=== PATIENT | male | born 1935 | race African-American/Black ===

== ENCOUNTER 2017-04-16 14:26 | Inpatient (IN) | payer MEDICARE, MEDICAID ==
[~2017-04-16] VITALS: Ht 185.4 cm; Wt 54.1 kg
[~2017-04-16 14:26] MED LIST: ALBU6.7H IH; AMLO-512 PO; BISA10S PR; FURO20TA4 PO; INSLAN SQ; MECL-110 PO; METO-296 PO; PANT40TA25 PO
[2017-04-16 16:48] LABS: GLUCOSE,POINT OF CARE 216 MG/DL (70-110)
[2017-04-16] MEDS ORDERED: SODIUM CHLORIDE 0.9% 1,000 ML IV ONE (17:38)
[2017-04-16 18:04] LABS: BASOPHILS % (AUTO) 0.8 % (0.0-2.0); EOSINOPHILS % (AUTO) 3.9 % (1.0-6.0); HEMATOCRIT 40.1 % (41-53); HEMOGLOBIN 13.7 g/dL (13.5-17.5); LYMPHOCYTES % (AUTO) 22.3 % (22.0-44.0); MEAN CORPUSCULAR HGB CONC 34.2 G/dL (31.0-37.0); MEAN CORPUSCULAR VOLUME 88 fL (80-100); MONOCYTES # (AUTO) 0.4 K/uL (0.1-1.0); MONOCYTES % (AUTO) 9.8 % (2.0-9.0); NEUTROPHILS # (AUTO) 2.8 K/uL (1.8-7.7); NEUTROPHILS % (AUTO) 63.2 % (40.0-70.0); PLATELET COUNT (AUTO) 127 K/uL (150-450); RED BLOOD CELL COUNT(AUTO) 4.57 MIL/uL (4.50-5.90); RED CELL DISTRIBUTION WIDTH 13.1 % (11.5-14.5); WHITE BLOOD COUNT (AUTO) 4.4 K/uL (4.5-11.0)
[2017-04-16 18:14] LABS: ANION GAP 4 mmol/L (8-16); CALCIUM, TOTAL 9.6 mg/dL (8.8-10.5); CARBON DIOXIDE 33 mmol/L (22-29); CHLORIDE 103 mmol/L (98-107); CREATININE 1.26 mg/dL (0.60-1.30); GLOMERULAR FILTR. RATE CALC > 60 mL/min (>60); POTASSIUM 3.9 mmol/L (3.5-5.1); SODIUM SERUM 140 mmol/L (136-145); UREA NITROGEN, BLOOD 23 mg/dL (7-18)
[2017-04-16 18:20] LABS: ALANINE AMINOTRANSFERASE 27 U/L (12-78); ALBUMIN 3.3 g/dL (3.4-5.0); ASPARTATE AMINOTRANSFERASE 25 U/L (15-37); BILIRUBIN,TOTAL 0.5 mg/dL (0.1-1.0); TOTAL PROTEIN, SERUM 8.3 g/dL (6.4-8.2)
[2017-04-16 18:26] LABS: B-TYPE NATRIURETIC PEPTIDE 62 pg/mL (0-100)
[2017-04-16] MEDS ORDERED: ONDANSETRON HCL 4 MG/2 ML VIAL IVP PRN (19:15)
[2017-04-16] MEDS ORDERED: ACETAMINOPHEN 325 MG TABLET PO PRN ×2 (19:15→21:30)
[2017-04-16] MEDS ORDERED: 0.9% SODIUM CHLORIDE 10 ML SYRINGE IVP PRN (19:15)
[2017-04-16 21:05] VITALS: BP 166/83
[2017-04-16] MEDS ORDERED: DEXTROSE 50%-WATER 25 GM/50 ML SYRINGE IVP PRN (21:30)
[2017-04-16] MEDS ORDERED: BISACODYL 10 MG RECTAL RECTAL SUPPOSITORY PR PRN (21:30)
[2017-04-17 01:38] VITALS: BP 142/96
[2017-04-17 01:42] LABS: GLUCOSE,POINT OF CARE 189 MG/DL (70-110)
[2017-04-17 04:51] VITALS: BP 149/89
[2017-04-17 05:58] LABS: GLUCOSE,POINT OF CARE 189 MG/DL (70-110)
[2017-04-17 07:42] VITALS: BP 132/66
[2017-04-17] MEDS: INSULIN REGULAR, HUMAN 100 UNITS/ML SQ PRN ×3 (11:32→17:11)
[2017-04-17] MEDS: HEPARIN SODIUM,PORCINE 5,000 UNITS/ML VIAL SQ SCH ×2 (11:32→20:02)
[2017-04-17 12:08] LABS: GLUCOSE,POINT OF CARE 149 MG/DL (70-110)
[2017-04-17 12:51] VITALS: BP 155/57
[2017-04-17 15:52] VITALS: BP 159/87
[2017-04-17 17:12] LABS: GLUCOSE,POINT OF CARE 115 MG/DL (70-110)
[2017-04-17] MEDS ORDERED: SODIUM CHLORIDE 0.9% 1,000 ML IV SCH (17:45)
[2017-04-17 19:44] VITALS: BP 153/90
[2017-04-17] MEDS: SODIUM CHLORIDE 0.45% 1,000 ML IV SCH (20:02)
[2017-04-17 20:51] LABS: GLUCOSE,POINT OF CARE 138 MG/DL (70-110)
[2017-04-18 00:04] VITALS: BP 150/68
[2017-04-18 04:49] VITALS: BP 152/78
[2017-04-18 06:33] LABS: GLUCOSE,POINT OF CARE 127 MG/DL (70-110)
[2017-04-18] MEDS: SODIUM CHLORIDE 0.45% 1,000 ML IV SCH (06:50)
[2017-04-18 07:35] VITALS: BP 155/75
[2017-04-18] MEDS: HEPARIN SODIUM,PORCINE 5,000 UNITS/ML VIAL SQ SCH ×2 (08:42→20:41)
[2017-04-18] MEDS ORDERED: SODIUM CHLORIDE 0.9% 1,000 ML IV ONE ×2 (09:04→09:30)
[2017-04-18] MEDS ORDERED: FentaNYL CITRATE-PF 100 MCG/2 ML VIAL ONE (09:06)
[2017-04-18] MEDS ORDERED: MIDAZOLAM HCL 5 MG/ML VIAL ONE (09:06)
[2017-04-18 11:20] VITALS: BP 178/71
[2017-04-18 12:02] LABS: GLUCOSE,POINT OF CARE 118 MG/DL (70-110)
[2017-04-18] MEDS: AmLODIPine BESYLATE 10 MG TABLET NG SCH (15:39)
[2017-04-18] MEDS: INSULIN REGULAR, HUMAN 100 UNITS/ML SQ PRN (18:00)
[2017-04-18 20:00] VITALS: BP 172/86
[2017-04-18 23:02] VITALS: BP 137/83
[2017-04-19] MEDS ORDERED: PROPOFOL 1% 20 ML VIAL IVP ONE (00:11)
[2017-04-19] MEDS ORDERED: LABETALOL HCL 5 MG/ML 20 ML VIAL IVP ONE (00:11)
[2017-04-19 05:32] VITALS: BP 131/80
[2017-04-19] MEDS: INSULIN REGULAR, HUMAN 100 UNITS/ML SQ PRN ×2 (06:09→11:58)
[2017-04-19 07:47] LABS: GLUCOSE COMMENT 1 Received Meds; GLUCOSE,POINT OF CARE 151 MG/DL (70-110)
[2017-04-19 07:47] LABS: GLUCOSE COMMENT 1 Received Meds; GLUCOSE,POINT OF CARE 217 MG/DL (70-110)
[2017-04-19 08:00] VITALS: BP 146/83
[2017-04-19] MEDS ORDERED: POVIDONE-IODINE 10% 120 ML SOLUTION TP SCH (09:00)
[2017-04-19] MEDS ORDERED: HYDROGEN PEROXIDE 473 ML SOLUTION TP SCH (09:00)
[2017-04-19] MEDS: AmLODIPine BESYLATE 10 MG TABLET NG SCH (10:02)
[2017-04-19] MEDS: HEPARIN SODIUM,PORCINE 5,000 UNITS/ML VIAL SQ SCH (10:02)
[2017-04-19 11:43] VITALS: BP 152/78
[2017-04-19 14:33] LABS: GLUCOSE COMMENT 1 Received Meds; GLUCOSE,POINT OF CARE 116 MG/DL (70-110)
[2017-04-19 14:37] LABS: GLUCOSE COMMENT 1 Received Meds; GLUCOSE,POINT OF CARE 143 MG/DL (70-110)
[2017-04-19 15:54] VITALS: BP 137/79
== END 2017-04-19 18:00 | disposition home or self-care (01) | DRG 393 ==
LOC: EMS 14:27 → 6N 19:34
PROVIDERS: ADMIT Internal Medicine; ATTEND Internal Medicine
PROC: 0DC68ZZ Extirpation of Matter from Stomach, Via Natural or Artificial Opening Endoscopic (ICD-10-PCS; 2017-04-18)
PROC: 0D20XUZ Change Feeding Device in Upper Intestinal Tract, External Approach (ICD-10-PCS; principal; 2017-04-18 10:00)
DX: K94.23 Gastrostomy malfunction (principal); E43 Unspecified severe protein-calorie malnutrition; E86.0 Dehydration; E11.9 Type 2 diabetes mellitus without complications; Z95.1 Presence of aortocoronary bypass graft; R64 Cachexia; R47.01 Aphasia; R13.10 Dysphagia, unspecified; I10 Essential (primary) hypertension; Z82.3 Family history of stroke; I25.2 Old myocardial infarction; Z86.73 Personal history of transient ischemic attack (TIA), and cerebral infarction without residual deficits
CPT/HCPCS: 82962; 88300; 96360; 97162; 97530; 99285; J1644; J2250; J2704; J3010; J3490; J7030

== ENCOUNTER 2017-04-24 19:36 | Inpatient (IN) | payer MEDICARE, MEDICAID ==
[~2017-04-24] VITALS: Ht 172.7 cm; Wt 58.6 kg
[2017-04-24 19:42] LABS: GLUCOSE,POINT OF CARE 133 MG/DL (70-110)
[2017-04-24] MEDS ORDERED: POVIDONE-IODINE 10% 15 ML SOLUTION UD TP ONE (20:00)
[2017-04-24 20:32] LABS: BASOPHILS % (AUTO) 0.7 % (0.0-2.0); HEMATOCRIT 38.2 % (41-53); HEMOGLOBIN 12.9 g/dL (13.5-17.5); LYMPHOCYTES # (AUTO) 1.4 K/uL (1.0-4.8); LYMPHOCYTES % (AUTO) 38.5 % (22.0-44.0); MEAN CORPUSCULAR HEMOGLOBIN 29.9 pg (26.0-34.0); MEAN CORPUSCULAR HGB CONC 33.6 G/dL (31.0-37.0); MEAN CORPUSCULAR VOLUME 89 fL (80-100); MONOCYTES # (AUTO) 0.5 K/uL (0.1-1.0); MONOCYTES % (AUTO) 13.3 % (2.0-9.0); NEUTROPHILS # (AUTO) 1.6 K/uL (1.8-7.7); NEUTROPHILS % (AUTO) 43.5 % (40.0-70.0); PLATELET COUNT (AUTO) 120 K/uL (150-450); RED CELL DISTRIBUTION WIDTH 12.7 % (11.5-14.5); WHITE BLOOD COUNT (AUTO) 3.7 K/uL (4.5-11.0)
[2017-04-24 20:41] LABS: ANION GAP 7 mmol/L (8-16); CALCIUM, TOTAL 9.7 mg/dL (8.8-10.5); CARBON DIOXIDE 31 mmol/L (22-29); CHLORIDE 100 mmol/L (98-107); CREATININE 1.15 mg/dL (0.60-1.30); GLOMERULAR FILTR. RATE CALC > 60 mL/min (>60); SODIUM SERUM 138 mmol/L (136-145); UREA NITROGEN, BLOOD 23 mg/dL (7-18)
[2017-04-24 20:48] LABS: ALANINE AMINOTRANSFERASE 44 U/L (12-78); ALBUMIN 3.5 g/dL (3.4-5.0); ASPARTATE AMINOTRANSFERASE 38 U/L (15-37); BILIRUBIN,TOTAL 0.4 mg/dL (0.1-1.0); TOTAL PROTEIN, SERUM 8.1 g/dL (6.4-8.2)
[2017-04-24 20:53] LABS: RBC MORPHOLOGY COMMENT NORMAL RBC MORPH
[2017-04-24 20:54] LABS: APPEARANCE,URINE CLEAR (CLEAR); GLUCOSE, URINE (UA) NEGATIVE (NEGATIVE); KETONES,URINE NEGATIVE (NEGATIVE); LEUKOCYTE ESTERASE ,URINE NEGATIVE (NEGATIVE); OCCULT BLOOD,URINE NEGATIVE (NEGATIVE); PH,URINE 7.5 (5.0-8.0); PROTEIN,URINE NEGATIVE (NEGATIVE)
[2017-04-24 20:55] LABS: ADD UA MICROSCOPIC NO
[2017-04-24 21:04] LABS: B-TYPE NATRIURETIC PEPTIDE 33 pg/mL (0-100)
[2017-04-24 22:03] LABS: PROTHROMBIN TIME 10.9 SEC (9.4-11.6)
[2017-04-25 00:14] VITALS: BP 154/88
[2017-04-25] MEDS ORDERED: ALBUTEROL SULFATE HFA 90 MCG/PUFF 8 GM INHALER IH PRN (01:30)
[2017-04-25] MEDS ORDERED: 0.9% SODIUM CHLORIDE 10 ML SYRINGE IVP PRN (01:30)
[2017-04-25] MEDS ORDERED: METOCLOPRAMIDE HCL 10 MG TABLET PO PRN (01:30)
[2017-04-25] MEDS ORDERED: BISACODYL 10 MG RECTAL RECTAL SUPPOSITORY PR PRN (01:30)
[2017-04-25] MEDS ORDERED: OxyCODONE HCL/ACETAMINOPHEN 5-325 MG TABLET PO PRN ×2 (01:30)
[2017-04-25] MEDS ORDERED: ONDANSETRON HCL 4 MG/2 ML VIAL IVP PRN (01:30)
[2017-04-25 05:42] VITALS: BP 142/79
[2017-04-25 06:12] LABS: GLUCOSE,POINT OF CARE 142 MG/DL (70-110)
[2017-04-25 07:30] VITALS: BP 148/87
[2017-04-25] MEDS: DOCUSATE SODIUM 100 MG CAPSULE PO SCH ×3 (09:00→21:00)
[2017-04-25] MEDS: AmLODIPine BESYLATE 10 MG TABLET PO SCH (09:00)
[2017-04-25] MEDS: INSULIN DETEMIR 100 UNITS/ML SQ SCH ×2 (09:00→21:00)
[2017-04-25] MEDS: MECLIZINE HCL 25 MG TABLET PO SCH ×3 (09:00→21:00)
[2017-04-25 11:25] VITALS: BP 168/68
[2017-04-25] MEDS: PANTOPRAZOLE SODIUM 40 MG/VIAL IVP SCH (12:29)
[2017-04-25 14:33] LABS: GLUCOSE,POINT OF CARE 130 MG/DL (70-110)
[2017-04-25] MEDS ORDERED: ENALAPRILAT DIHYDRATE 1.25 MG/ML VIAL IVP PRN (15:00)
[2017-04-25] MEDS: DEXTROSE 5%-0.9% SODIUM CHL 1,000 ML IV SCH (15:25)
[2017-04-25 18:08] LABS: GLUCOSE,POINT OF CARE 157 MG/DL (70-110)
[2017-04-25 19:31] VITALS: BP 153/78
[2017-04-25 23:12] LABS: GLUCOSE COMMENT 1 Received Meds; GLUCOSE,POINT OF CARE 197 MG/DL (70-110)
[2017-04-25 23:47] VITALS: BP 122/96
[2017-04-26] MEDS: DEXTROSE 5%-0.9% SODIUM CHL 1,000 ML IV SCH ×2 (00:26→13:39)
[2017-04-26 05:35] VITALS: BP 127/77
[2017-04-26 06:03] LABS: GLUCOSE,POINT OF CARE 197 MG/DL (70-110)
[2017-04-26 06:51] LABS: BASOPHILS # (AUTO) 0.03 K/uL (0.00-0.20); EOSINOPHILS # (AUTO) 0.14 K/uL (0.00-0.70); EOSINOPHILS % (AUTO) 4.08 % (1.0-6.0); HEMATOCRIT 36.2 % (41-53); HEMOGLOBIN 12.1 g/dL (13.5-17.5); LYMPHOCYTES # (AUTO) 1.1 K/uL (1.0-4.8); LYMPHOCYTES % (AUTO) 33.6 % (22.0-44.0); MEAN CORPUSCULAR HEMOGLOBIN 29.6 pg (26.0-34.0); MEAN CORPUSCULAR HGB CONC 33.3 G/dL (31.0-37.0); MEAN CORPUSCULAR VOLUME 89 fL (80-100); MONOCYTES # (AUTO) 0.5 K/uL (0.1-1.0); MONOCYTES % (AUTO) 13.9 % (2.0-9.0); NEUTROPHILS # (AUTO) 1.6 K/uL (1.8-7.7); NEUTROPHILS % (AUTO) 47.4 % (40.0-70.0); PLATELET COUNT (AUTO) 122 K/uL (150-450); RED BLOOD CELL COUNT(AUTO) 4.07 MIL/uL (4.50-5.90); RED CELL DISTRIBUTION WIDTH 13.4 % (11.5-14.5); WHITE BLOOD COUNT (AUTO) 3.4 K/uL (4.5-11.0)
[2017-04-26 07:19] LABS: ANION GAP 7 mmol/L (8-16); CARBON DIOXIDE 29 mmol/L (22-29); CHLORIDE 106 mmol/L (98-107); CREATININE 1.09 mg/dL (0.60-1.30); GLOMERULAR FILTR. RATE CALC > 60 mL/min (>60); POTASSIUM 3.9 mmol/L (3.5-5.1); SODIUM SERUM 142 mmol/L (136-145); UREA NITROGEN, BLOOD 12 mg/dL (7-18)
[2017-04-26 07:46] VITALS: BP 170/101
[2017-04-26] MEDS: PANTOPRAZOLE SODIUM 40 MG/VIAL IVP SCH (08:29)
[2017-04-26] MEDS: INSULIN DETEMIR 100 UNITS/ML SQ SCH ×2 (08:44→21:00)
[2017-04-26] MEDS: MECLIZINE HCL 25 MG TABLET PO SCH ×3 (08:45→19:31)
[2017-04-26] MEDS: AmLODIPine BESYLATE 10 MG TABLET PO SCH (08:45)
[2017-04-26] MEDS: DOCUSATE SODIUM 100 MG CAPSULE PO SCH ×2 (08:45→19:31)
[2017-04-26 10:18] LABS: RBC MORPHOLOGY COMMENT NORMAL RBC MORPH
[2017-04-26 10:27] LABS: INR 1.1 (0.9-1.1); PROTHROMBIN TIME 11.5 SEC (9.4-11.6)
[2017-04-26] MEDS ORDERED: DIATRIZOATE MEGLU/SOD 660/100 MG/ML 120 ML BOTTLE ONE (11:02)
[2017-04-26 16:26] VITALS: BP 161/71
[2017-04-26 18:27] LABS: GLUCOSE,POINT OF CARE 91 MG/DL (70-110)
[2017-04-26 19:27] LABS: GLUCOSE COMMENT 1 Received Meds; GLUCOSE,POINT OF CARE 200 MG/DL (70-110)
[2017-04-26 19:32] LABS: GLUCOSE,POINT OF CARE 127 MG/DL (70-110)
[2017-04-26 20:48] VITALS: BP 131/101
[2017-04-26 20:52] LABS: GLUCOSE COMMENT 1 Juice/Food/D50 Given; GLUCOSE,POINT OF CARE 67 MG/DL (70-110)
[2017-04-26 23:27] VITALS: BP 142/69
[2017-04-27 01:17] LABS: GLUCOSE COMMENT 1 Repeated; GLUCOSE,POINT OF CARE 95 MG/DL (70-110)
[2017-04-27 05:04] VITALS: BP 142/77
[2017-04-27 06:53] LABS: GLUCOSE,POINT OF CARE 178 MG/DL (70-110)
[2017-04-27 07:51] VITALS: BP 136/78
[2017-04-27] MEDS: DOCUSATE SODIUM 100 MG CAPSULE PO SCH (08:32)
[2017-04-27] MEDS: MECLIZINE HCL 25 MG TABLET PO SCH ×2 (08:32→16:08)
[2017-04-27] MEDS: PANTOPRAZOLE SODIUM 40 MG/VIAL IVP SCH (08:32)
[2017-04-27] MEDS: AmLODIPine BESYLATE 10 MG TABLET PO SCH (08:37)
[2017-04-27 08:48] LABS: GLUCOSE COMMENT 1 Received Meds; GLUCOSE,POINT OF CARE 191 MG/DL (70-110)
[2017-04-27] MEDS: INSULIN DETEMIR 100 UNITS/ML SQ SCH (08:48)
[2017-04-27 11:22] VITALS: BP 175/74
[2017-04-27 12:08] LABS: GLUCOSE,POINT OF CARE 216 MG/DL (70-110)
[2017-04-27 14:34] VITALS: BP 150/83
[2017-04-27] MEDS ORDERED: INFLUENZA VIRUS VACCINE QVS 2017-18 (3YR+)/PF 60 MCG/0.5 ML SYRINGE IM ONE (15:45)
== END 2017-04-27 17:47 | disposition home or self-care (01) | DRG 394 ==
LOC: EMS 19:36 → 6N 21:10
PROVIDERS: ADMIT Internal Medicine; ATTEND Internal Medicine
PROC: 0D20XUZ Change Feeding Device in Upper Intestinal Tract, External Approach (ICD-10-PCS; principal; 2017-04-26)
PROC: 3E0234Z Introduction of Serum, Toxoid and Vaccine into Muscle, Percutaneous Approach (ICD-10-PCS; 2017-04-27)
DX: K94.23 Gastrostomy malfunction (principal); E44.1 Mild protein-calorie malnutrition; E11.9 Type 2 diabetes mellitus without complications; I69.320 Aphasia following cerebral infarction; Z68.1 Body mass index [BMI] 19.9 or less, adult; F23 Brief psychotic disorder; N28.9 Disorder of kidney and ureter, unspecified; F41.9 Anxiety disorder, unspecified; Y83.3 Surgical operation with formation of external stoma as the cause of abnormal reaction of the patient, or of later complication, without mention of misadventure at the time of the procedure; I10 Essential (primary) hypertension; I25.2 Old myocardial infarction; Z82.3 Family history of stroke; Z23 Encounter for immunization; Z79.899 Other long term (current) drug therapy; Z79.4 Long term (current) use of insulin; Z95.1 Presence of aortocoronary bypass graft; Y92.89 Other specified places as the place of occurrence of the external cause
CPT/HCPCS: 36245; 43246; 74000; 82962; 87081; 90471; 99285; C9113; J3490; J7042